=== PATIENT | female | born 1975 | race Two or more races ===

== ENCOUNTER → 2019-03-21 | Day surgery (SDC) | payer SELFPAY ==
[~2019-03-21] MED LIST: CYCL5TAB PO; HYDR-3164 PO; IBUP-1027 PO; IV RINGERS,LACTATED 1000ML 1,000 ML IV SCH; LIDOCAINE 2% PF 5 ML VIAL. ONE; OMEP20CA10 PO; ONDA4TAB10 SL; PROPOFOL 20 ML IV ONE; TRAM50TA PO
[2019-03-21 09:04] LABS: U PREG PATIENT NEGATIVE (NEG)
[2019-03-21 10:24] VITALS: BP 125/68
--- NOTE | 2019-03-22 14:07 | PATHOLOGY ---
[facility] Accession Number: [id number] . 01 Material submitted: . PART A: small bowel - SMALL BOWEL BIOPSY PART B: stomach - GASTRIC ANTRUM PART C: esophagus - DISTAL ESOPHAGUS. Modifiers: distal PART D: esophagus - MID ESOPHAGUS. Modifiers: mid . 01 Clinical history: . Abdominal pain, dysphagia . 02 Diagnosis: A. Small bowel biopsies: - No significant pathologic abnormalities. . B. Gastric biopsies, antrum: - Chronic gastritis, mild. . C. Esophageal biopsies, distal esophagus: - Segments of esophagogastric and gastric mucosa showing focally active chronic inflammation and focal intestinal metaplasia with goblet cells consistent with Delgado's change. . D. Esophageal biopsies, middle esophagus: - Segments of hyperplastic squamous esophageal mucosa identified consistent with reflux changes. . (TRACEYM:justo; 03/22/2019) MBR/03/22/2019 . 02 Comment: Sections of the small bowel biopsy reveal segments of duodenal and small intestine mucosa. Where best oriented, there are no sprue-like changes or significant inflammatory changes. . Sections of the gastric antral biopsy show congestion and mild chronic inflammation. A properly controlled immunoperoxidase stain for Helicobacter is negative for Helicobacter organisms. . Sections of the distal esophageal biopsy reveal segments of esophagogastric and gastric mucosa showing focally active moderate to marked chronic inflammation. The squamous esophageal mucosa is hyperplastic. There is focal intestinal metaplasia with goblet cells consistent with Delgado's change. There is no dysplasia or evidence of malignancy. . Sections of the middle esophageal biopsy reveal segments of tangentially oriented hyperplastic squamous esophageal mucosa consistent with reflux changes. There is no evidence of Deglado's change, dysplasia, or malignancy. . (TRACEYM:jsuto; 03/22/2019) Special stain performed: Immunoperoxidase stain for Helicobacter on B1. . 02 Electronically signed: . Joshua Broussard MD, Pathologist NPI- [id number] . 01 Gross description: . A. Received in formalin labeled "[place], Renita, small bowel," are 5 segments of mena soft tissue measuring 1.3 x 0.9 x 0.2 cm in aggregate dimensions and ranging from 0.2 to 0.4 cm in maximum dimension. The specimen is submitted entirely in cassette A1. . B. Received in formalin labeled "[place], Renita, gastric antrum," are 4 segments of mena soft tissue measuring 1.3 x 0.9 x 0.2 cm in aggregate dimensions and ranging from 0.3 to 0.6 cm in maximum dimension. The specimen is submitted entirely in cassette B1. . C. Received in formalin labeled "[place], Renita, distal esophagus," are 3 segments of mena soft tissue measuring 0.9 x 0.8 x 0.2 cm in aggregate dimensions and ranging from 0.3 to 0.4 cm in maximum dimension. The specimen is submitted entirely in cassette C1. . D. Received in formalin labeled "[place], Renita, mid esophagus," are 4 segments of mena soft tissue measuring 1.1 x 0.8 x 0.2 cm in aggregate dimensions and ranging from 0.3 to 0.4 cm in maximum dimension. The specimen is submitted entirely in cassette D1. (TSD; 03/21/2019) TOB/TOB . 02 Pathologist provided ICD-10: K29.50, K20.9, K22.70, K21.0 . 02 CPT . 396369, [id number], [id number], [id number], [id number] Specimen Comment: A courtesy copy of this report has been sent to Specimen Comment: [phone]. Specimen Comment: Report sent to Performed at: 01 [facility] [address], [place], [place] [id number] MD Roel Pillai MD Phone: [phone] Performed at: 02 [facility] [address] [place], [place] [id number] MD Joshua Broussard MD Phone: [phone]
--- NOTE | 2019-04-02 15:21 | PREOP HP ---
DATE OF SERVICE: 03/21/2019 DATE OF SURGERY: 03/21/2019 REASON FOR PROCEDURE: Dysphagia and followup of gastrointestinal metaplasia. HISTORY OF PRESENT ILLNESS: This is a 44-year-old female who had both an upper and lower endoscopy 12/20/2017. Her upper endoscopy demonstrated intestinal metaplasia on her gastric antral biopsies. She is here for followup. PAST MEDICAL HISTORY: 1. Gastric intestinal metaplasia. 2. Colon polyps. 3. Delgado's esophagus. ALLERGIES: No known drug allergies. SOCIAL HISTORY: She denies alcohol, tobacco, or IV drug abuse. MEDICATIONS: 1. Ranitidine: 2. Ibuprofen. PAST SURGICAL HISTORY: She has had a cholecystectomy. REVIEW OF SYSTEMS: A 13-point review of systems was done. It is positive as per HPI and otherwise negative. PHYSICAL EXAMINATION: VITAL SIGNS: She is afebrile. Her vital signs are stable. GENERAL: She is a well-developed, well-nourished female, in no apparent distress. HEENT: Oropharynx is clear. CARDIOVASCULAR: S1, S2. LUNGS: Clear. ABDOMEN: Active bowel sounds, soft, nontender, nondistended. EXTREMITIES: No edema. NEUROLOGIC: Awake, alert and oriented x 3. ASSESSMENT AND PLAN: Gastric intestinal metaplasia. We will proceed with an upper endoscopy for further evaluation. The risks and benefits including bleeding, perforation, non-diagnosis and sedation were explained and she has agreed to proceed. Thank you for allowing me to participate in the care of this patient. DEISI LINARES MD DR: CLAUDIA/miriam JOB#: [id number] / [id number]
== END | disposition home or self-care (01) ==
LOC: ENDOS 08:41 → MERGE 09:30
PROVIDERS: ATTEND Internal Medicine Gastroenterology
DX: K21.0 Gastro-esophageal reflux disease with esophagitis (principal); K29.50 Unspecified chronic gastritis without bleeding; K31.89 Other diseases of stomach and duodenum; K22.70 Barrett's esophagus without dysplasia; F41.9 Anxiety disorder, unspecified; M19.90 Unspecified osteoarthritis, unspecified site; Z82.49 Family history of ischemic heart disease and other diseases of the circulatory system; Z79.899 Other long term (current) drug therapy
CPT/HCPCS: 43239; 43450; 81025; 88305; 88342; J2001; J2704